=== PATIENT | female | born 1955 | race Caucasian/White ===

== ENCOUNTER 2017-03-04 12:56 | Outpatient (CLI) | payer OTHER ==
--- NOTE | 2017-03-04 14:17 | MMO ---
LEFT DIAGNOSTIC MAMMOGRAM: Date: 03/04/17 COMPARISON: 02/27/17. HISTORY: Left breast calcification seen on screening mammography. FINDINGS: A ML view of the left breast, as well as spot magnification views of the left breast in the ML, MLO, and CC projections were performed. There is heterogeneously dense breast parenchyma which may lower the sensitivity of mammography. There are calcifications in the upper outer aspect of the left abhilash st. On the CC view, these calcifications appear well circumscribed and are slightly smudgy in appear ance. On the ML view, there appears to be tea-cupping within the calcifications and these likely rep resent milk of calcium. No pleomorphic calcifications are identified. There are other scattered calc ifications in the upper outer aspect of the left breast which are not definitely suspicious. IMPRESSION: BIRADS Category 2 - benign findings. Annual screening mammography is recommended. POS: [facility]
== END 2017-03-04 12:57 | disposition home or self-care (01) ==
LOC: MAMMO 12:56
PROVIDERS: ATTEND Internal Medicine
DX: R92.1 Mammographic calcification found on diagnostic imaging of breast (principal)
CPT/HCPCS: G0206-LT

== ENCOUNTER 2017-03-24 10:41 | Emergency (ER) | payer OTHER ==
[2017-03-24] MEDS ORDERED: Albuterol Sulfate 2.5 mg/0.5 ml Neb ONE (10:50)
[2017-03-24] MEDS ORDERED: methylPREDNISolone Sod Succ/PF 125 MG/2 ML VIAL ONE (10:57)
[2017-03-24] MEDS ORDERED: Sterile Water 10 ML ONE (10:57)
[2017-03-24] MEDS ORDERED: Famotidine/PF 20 mg/2ml Vial ONE (10:58)
--- NOTE | 2017-03-24 11:24 | RAD ---
RADIOGRAPH CHEST 2 VIEWS: HISTORY: 61-year-old female with dyspnea. FINDINGS: There is no air space density, pulmonary edema, pleural effusion, pneumothorax, or cardiomegaly. IMPRESSION: No acute cardiopulmonary findings. jn [] POS: [facility]
== END 2017-03-24 12:05 | disposition home or self-care (01) ==
LOC: ERS 10:41 → SCSER 12:05
DX: T78.40XA Allergy, unspecified, initial encounter (principal); I10 Essential (primary) hypertension; Z87.442 Personal history of urinary calculi
CPT/HCPCS: 71020; 96374; 96375; A4216; J2930; J7611; S0028

== ENCOUNTER 2018-06-27 13:19 | Day surgery (SDC) | payer OTHER ==
[2018-06-27] MEDS ORDERED: Iothalamate Meglumine 60% 50 ML VIAL FS ONE ×2 (14:44→15:23)
[2018-06-27] MEDS ORDERED: CEFAZOLIN 2 GM/50 ML BAG ONE (14:56)
[2018-06-27] MEDS ORDERED: Fentanyl 100 MCG/2 ML VIAL ONE (15:05)
[2018-06-27] MEDS ORDERED: Midazolam HCl 2 mg/2 ml Vial ONE (15:06)
[2018-06-27] MEDS ORDERED: Promethazine HCl 25 MG/ML VIAL ONE (15:06)
[2018-06-27] MEDS ORDERED: Dexamethasone 20 MG/5 ML VIAL ONE (15:29)
[2018-06-27] MEDS ORDERED: PROPOFOL 200 MG/20 ML VIAL ONE (15:29)
[2018-06-27] MEDS ORDERED: Succinylcholine Chloride 20 MG/ML 10 ml SYRINGE FS ONE (15:29)
[2018-06-27] MEDS ORDERED: Ondansetron PF 4 MG/2 ML Vial ONE (15:29)
[2018-06-27] MEDS ORDERED: Lidocaine 1% PF 5 ML VIAL ONE (15:29)
[2018-06-27] MEDS ORDERED: HYDROmorphone 2 MG/ML VIAL SLOW IVP PRN (16:02)
[2018-06-27] MEDS ORDERED: Promethazine HCl 25 MG/ML VIAL IM PRN (16:02)
[2018-06-27] MEDS ORDERED: Ondansetron HCl/PF 4 MG/2 ML Vial IVP PRN (16:02)
[2018-06-27] MEDS ORDERED: PACU-Morphine 4MG/ML VIAL SLOW IVP PRN (16:02)
[2018-06-27] MEDS ORDERED: Promethazine HCl 25 MG/ML VIAL SLOW IVP PRN (16:02)
--- NOTE | 2018-06-27 16:26 | OP ---
DATE OF PROCEDURE: 06/27/2018 PREOPERATIVE DIAGNOSIS: Right ureteral stones. POSTOPERATIVE DIAGNOSIS: Right ureteral stones. PROCEDURES PERFORMED: Cystoscopy and right double-J stent placement. ANESTHESIA: General. INDICATIONS: Ms. 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 She has a prior history of stone disease, having had left percutaneous nephrolithotripsy in the past. A CT scan demonstrates 2 right-sided ureteral stones, one 5 x 8 mm and one 5 x 6 mm. Her pain was difficult to manage, so she was transferred from [facility] to [facility]. She has opted to have stent placement. DESCRIPTION OF PROCEDURE: The patient was given general anesthesia and IV antibiotics. She was prepped and draped in the lithotomy position. Cystoscope was passed into the bladder. Bladder was examined in its entirety. There were no mucosal lesions. She did have a significant cystocele. Right ureteral orifice was visualized and a Glidewire was passed cephalad under fluoroscopic control until it was curled in the right renal pelvis. A 4.8 x 24 double-J stent was then passed over the guidewire and coiled in the right renal pelvis and the bladder as determined fluoroscopically and cystoscopically. The bladder was drained. Cystoscope was removed. The patient tolerated the procedure well, was transported from the operating room to recovery room in stable condition. COMPLICATION: None. ESTIMATED BLOOD LOSS: Minimal. Job ID: [id number] [facility]
[2018-06-27] MEDS ORDERED: HYDROcodone/Acetaminophen 5/325 mg Tablet ONE (17:53)
[2018-06-27] MEDS ORDERED: Oxybutynin 5 MG TAB ONE (17:53)
--- NOTE | 2018-06-27 20:58 | CON ---
DATE OF CONSULTATION: 06/27/2018 CHIEF COMPLAINT: Right flank pain, bilateral kidney stones, right ureteral stones. 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 She had a left percutaneous nephrolithotripsy by Dr. Castro approximately 6 years ago. She has not had any stone intervention since that time. She presents now with acute onset of right-sided flank pain. She was seen in [facility], where CT scan was performed. She has two stones in her right ureter, one 5 x 8 mm, one 5 x 6 mm. She has 8 x 9 mm stone in the left kidney and some other small stones in both the right and left kidney. She has no fevers or chills. Denies dysuria. Urinalysis demonstrated no convincing signs of infection. Her pain was difficult to control at [facility] and they recommended that she undergo transfer to [place] for further management. PAST MEDICAL HISTORY: Hypertension, kidney stone disease. PAST SURGICAL HISTORY: Breast biopsy, right salpingo-oophorectomy, appendectomy, left percutaneous nephrolithotripsy. ALLERGIES: 1. MORPHINE CAUSES A RASH. 2. BETADINE TOPICAL. SOCIAL HISTORY: She is a nonsmoker. Denies excessive alcohol use. 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 REVIEW OF SYSTEMS: RESPIRATORY: No shortness of breath. CARDIOVASCULAR: No chest pain or palpitations. GASTROINTESTINAL: She has had some nausea since her stone, pain developed during this hospitalization. GENITOURINARY: Denies dysuria or hematuria. PHYSICAL EXAMINATION: GENERAL: She is awake and alert. She is in no distress at this time. VITAL SIGNS: Blood pressure 138/82, pulse 82, respiratory rate 16. HEENT: Normocephalic, atraumatic. NECK: Supple. No masses. CHEST: Clear to auscultation. CARDIOVASCULAR: Regular rate and rhythm. ABDOMEN: Soft, nontender. No palpable masses. Liver and spleen not palpable. No abdominal tenderness noted. IMPRESSION: Distal ureteral stones x2, one 5 x 6. She has pain and is difficult to control without IV pain medication. Discussed management options with her. She wished to proceed with ureteral stent placement and knowing that she will need to return for definitive treatment of the stones with laser lithotripsy. The alternatives, potential risks, expected outcomes have been discussed with her. She does wish to proceed. PLAN: Cystoscopy, right double-J stent placement. Job ID: [id number]
== END 2018-06-27 18:08 | disposition home or self-care (01) ==
LOC: SDC/OP 13:19
PROVIDERS: ATTEND Urology
PROC: 0T768DZ Dilation of Right Ureter with Intraluminal Device, Via Natural or Artificial Opening Endoscopic (ICD-10-PCS; principal; 2018-06-27)
DX: N20.1 Calculus of ureter (principal); I10 Essential (primary) hypertension; Z87.442 Personal history of urinary calculi; Z90.721 Acquired absence of ovaries, unilateral; Z90.49 Acquired absence of other specified parts of digestive tract; Z88.5 Allergy status to narcotic agent; Z91.09 Other allergy status, other than to drugs and biological substances; Z98.890 Other specified postprocedural states
CPT/HCPCS: 76000; C1769; J1100; J2001; J2250; J2405; J2550; J2704; J3010; Q9961

== ENCOUNTER 2018-07-04 11:10 | Day surgery (SDC) | payer OTHER ==
[~2018-07-04 11:10] MED LIST: Dexamethasone 20 MG/5 ML VIAL ONE; Lidocaine 1% PF 5 ML VIAL ONE; Ondansetron PF 4 MG/2 ML Vial ONE; PROPOFOL 200 MG/20 ML VIAL ONE
[2018-07-04] MEDS ORDERED: Ondansetron PF 4 MG/2 ML Vial ONE (11:15)
[2018-07-04] MEDS ORDERED: Ketorolac Tromethamine 30 MG/ML VIAL ONE (11:15)
[2018-07-04] MEDS ORDERED: Fentanyl 100 MCG/2 ML VIAL ONE ×4 (11:29→14:06)
[2018-07-04 11:32] LABS: #Basophils 0.2 thou/uL (0.0-0.2); #Eosinphils 0.3 thou/uL (0.0-0.7); #Monocytes 0.6 thou/uL (0.11-0.59); #Neutrophils 4.9 thou/uL (1.40-6.50); %Basophils 1.6 % (0.0-1.0); %Eosinophils 2.9 % (0.0-10.0); %Monocytes 5.7 % (0.0-10.0); %Neutrophils 49.8 % (42.0-75.0); Hemoglobin 15.3 g/dL (12.0-16.0); Mean Corpuscular HGB CONC 33.6 g/dL (32.0-36.0); Mean Corpuscular Hemoglobin 29.2 pg (27.0-31.0); Mean Corpuscular Volume 86.8 fL (78.0-98.0); Platelet Count 223 thou/uL (130-400); RBC Distribution Width 11.3 % (11.5-14.5); Red Blood Cell (RBC) Count 5.26 mill/uL (4.20-5.40); White Blood Cell (WBC) Count 9.9 thou/uL (4.8-10.8)
[2018-07-04 11:47] LABS: ALT (SGPT) 14 U/L (8-55); AST (SGOT) 16 U/L (5-34); Albumin 4.3 g/dL (3.4-4.8); Alkaline Phosphatase 87 U/L (40-150); Anion Gap 15 mmol/L (10-20); BUN (Urea Nitrogen) 20 mg/dL (9.8-20.1); Bilirubin, Total 0.4 mg/dL (0.2-1.2); Calc. Creatinine Clearance 0 mL/min (70-130); Calcium 11.2 mg/dL (7.8-10.44); Carbon Dioxide 25 mmol/L (23-31); Chloride 106 mmol/L (98-107); Estimated GFR-MDRD 76; Glucose 102 mg/dL (80-115); Lipase 26 U/L (8-78); Potassium 4.2 mmol/L (3.5-5.1); Protein, Total 7.3 g/dL (6.0-8.3); Sodium 142 mmol/L (136-145)
[2018-07-04 12:42] LABS: Bilirubin Negative (Negative); Blood, Urine Large (Negative); Glucose, Urine (Dipstick) Negative (Negative); Leukocyte Small (Negative); Nitrite Negative (Negative); Protein, Urine (Dipstick) 100 mg/dL (Neg-Trace); Urobilinogen 0.2 mg/dL (0.2-1.0)
[2018-07-04 12:43] LABS: Clarity Hazy (Clear)
[2018-07-04 12:49] LABS: Bacteria/HPF 1+ HPF (None Seen)
[2018-07-04] MEDS ORDERED: Levofloxacin 500 mg/D5W 100 ml Premix Bag ONE (13:53)
[2018-07-04] MEDS ORDERED: Oxybutynin 5 MG TAB ONE (15:01)
[2018-07-04] MEDS ORDERED: Phenazopyridine HCl 97.5 MG TABLET ONE (15:01)
--- NOTE | 2018-07-04 15:16 | CT ---
CT ABDOMEN NONCONTRAST CT PELVIS NONCONTRAST: (urolithiasis protocol) DATE: 07/04/2018. TIME: 12:00 p.m. HISTORY: A 62-year-old female with right obstructive uropathy, with right ureteral calculus. Ureteral stent p laced on 06/27/2018, but the patient is experiencing worsening of right flank pain today. COMPARISON: 11/18/2010. TECHNIQUE: IV injection of iodinated contrast media: none. Oral contrast media: none. FINDINGS: Other than for urolithiasis, the lack of IV and oral contrast limits the evaluation. There is a right ureteral stent, new since the 2011 CT. The lower pigtail loop is in the anterior as pect of the bladder lumen, after crossing over to the left side of the urinary bladder from the right UVJ. The upper pigtail loop of the stent is in the right proximal ureter at the L4-5 level. Superi or to that, there is moderate to severe dilation of the right proximal ureter, right renal pelvis, an d right calyces, similar to the appearance on the CT of 11/18/2010. There is right nephromegaly and m ild right perirenal fat stranding representing edema. There are tiny calculi in right renal upper, mid, and lower pole calyces, on the order of 1 and 2 mm in size each, more numerous than in 2011. There is a new finding of numerous calculi in the contra lateral left renal upper, mid, and lower keri e calyces of varying sizes, varying from 1 or 2 mm for the smallest ones, up to 10 x 12 x 8 mm for th e largest one at a left renal lower pole calyx. No left-sided hydronephrosis. Within the limitations of a noncontrast scan, no major pathology is identified involving abdominal ao rta, pancreas, liver, spleen, or right adrenal. There is a small left adrenal 1 cm nodule which is a pparently new since the previous CT. It has a density of 7 HU, consistent with adrenal adenoma. No pleural effusion. IMPRESSION: 1. Right obstructive uropathy: Moderate to severe right hydronephrosis and right nephromegaly with perirenal mild edema. 2. Although there is a right-sided ureteral stent, the upper pigtail loop is in the right proximal u reter, rather than being in the right renal collecting system. 3. Bilateral nephrolithiasis, with greater number and sizes of bilateral renal calculi, left greater than right, compared to 11/18/2010. CARLOS Melton POS: [facility]
--- NOTE | 2018-07-04 15:39 | CON ---
DATE OF CONSULTATION: 07/04/2018 ER CONSULTATION. PRIMARY UROLOGIST: Shlomo Castro MD ; status post right ureteral stent placement by Dr. Samuel 1 week ago. REASON FOR CONSULT: Right hydronephrosis secondary to migrated stent. HISTORY OF PRESENT ILLNESS: Ms. Campa is a 62-year-old female with history of recurrent kidney stones followed by Dr. Catsro. She underwent CT imaging at [facility] on June 27 due to intractable pain and found to have right distal ureteral calculi x2. She was seen by on-call Dr. Samuel and underwent cysto 4.8 x 24 double-J ureteral stent. The patient states that she is scheduled to have ureteroscopy, laser lithotripsy with Dr. Castro this Friday. She presented to [facility] ER. She had acute onset of right lower flank pain, intractable. CT restaging obtained by the emergency room demonstrating distal migration of the right ureteral stent to the proximal ureter with hydronephrosis. She has been provided multiple pain medication including Dilaudid 0.5 mg, fentanyl 150 mcg, Toradol 15 mg, and Zofran 4 mg. Currently, she still has some discomfort, however, it is adequately controlled. Due to significant discomfort with hydronephrosis, I advised that she will be transferred to [place] for cysto stent exchange. She states that she has been on Macrobid provided by Dr. Castro. Denies fever. She does have hypertension, on arrival, however, this is due to pain. PAST MEDICAL HISTORY: Includes hypertension and kidney stones, recurrent. PAST SURGICAL HISTORY: Breast biopsy; right salpingo-oophorectomy; appendectomy ; left percutaneous nephrolithotomy by Dr. Castro in 2005; on June 27, 2018, cysto right retrograde stent by Dr. Samuel. ALLERGIC: To morphine, rash, Betadine topical. SOCIAL HISTORY: Nonsmoker. Denies excessive alcohol or illicit drug use. 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 REVIEW OF SYSTEMS: Ten-point review of systems as above, otherwise noncontributory. PHYSICAL EXAMINATION: VITAL SIGNS: Blood pressure on arrival was 212/75, otherwise unremarkable. Afebrile. GENERAL: The patient is conversational and cooperative to physical exam. HEENT: Unremarkable. HEART: Regular rate. LUNGS: Clear. ABDOMEN: Soft. There is some tenderness to the right lower quadrant as anticipated. Obese. No rigidity. No rebound. EXTREMITIES: No cyanosis, clubbing, or edema. GENITOURINARY: Deferred at this time. PERTINENT LABORATORY DATA: White count 9.9, hemoglobin 15, and platelet 223. Creatinine 0.77, calcium 11.2. Urinalysis; contaminated, squamous epithelials are present, however, has 2+ bacteria, 4 to 6 wbc's, 100 protein, yellow. Of note, on July 02, urine culture is negative. Prior history of Klebsiella, pansensitive in 2016. IMAGING: CT stone protocol, which I reviewed myself. The left kidney has no evidence of hydronephrosis. There are left lower pole aggregate stones per my review, measuring 2 cm. There is distal migration of the right ureteral stent to the level of L3/L4 ureter with hydronephrosis and nephromegaly. Stone nidus in the distal ureter. IMPRESSION AND PLAN: Ms. Campa is a 62-year-old female, who presents with right hydronephrosis pain due to distal migration of ureteral stent resulting in hydronephrosis. 2. Left nonobstructing renal lithiasis, 2 cm. 3 Hypercalcemia. Recommend cysto right retrograde stent exchange. will obtain a UA, AERONAUTICAL ENGINEER intraoperatively as specimen provided is contaminated. I anticipate the patient will be discharged home after stent replacement with appropriate medications. She is to follow up with Dr. Castro, as culture needs to be reviewed prior to ureteroscopy, laser lithotripsy. Job ID: [id number] MTDD
--- NOTE | 2018-07-04 15:47 | OP ---
DATE OF PROCEDURE: 07/04/2018 PRIMARY UROLOGIST: Shlomo Castro MD PREOPERATIVE DIAGNOSES: 1. A 62-year-old female with history of recurrent kidney stone, history of right hydronephrosis secondary to two ureteral calculi. 2. Nonobstructing left lower pole 2-cm stone. 3. Intractable pain secondary to distal migration of previous ureteral stent with hydronephrosis. POSTOPERATIVE DIAGNOSES: 1. A 62-year-old female with history of recurrent kidney stone, history of right hydronephrosis secondary to two ureteral calculi. 2. Nonobstructing left lower pole 2-cm stone. 3. Intractable pain secondary to distal migration of previous ureteral stent with hydronephrosis. PROCEDURES PERFORMED: Cystoscopy, right retrograde, 6 x 26 double-J ureteral stent exchange. ANESTHESIA: LMA. COMPLICATIONS: None apparent. DISPOSITION: To recovery room in stable condition. INTRAOPERATIVE FINDINGS: 1. Grade 3 cystocele. 2. Distal migration of the ureteral stent. INDICATIONS FOR PROCEDURE AND HISTORY: Ms. 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 Samuel on June 27 due to distal ureteral calculi x2. She presents to the emergency room due to acute onset of intractable right flank pain requiring significant amount of narcotics , CT staging demonstrated hydronephrosis secondary to distal migration of the stent with hydronephrosis. The ureteral stones remain in situ. Of note, the patient had hypercalcemia, which will need to be worked up at a later point by her primary urologist. She presents for cysto stent exchange due to significant discomfort. Risks and complications and indications of the procedure was reviewed with her in detail and she desired to proceed. DESCRIPTION OF PROCEDURE: After an informed consent was signed, the patient was taken to the operating room, placed in a dorsal lithotomy position with the genital area prepped and draped in the usual surgical sterile fashion. Bilateral DEJAH hose SCDs and broad-spectrum antibiotics were provided. The genital area was formally prepped and draped and we used a 21-Indonesian cystoscope. She does have a moderate cystocele, grade 2 to 3. Cystoscope was passed without significant issues. The stent was removed to the level of the meatus. A 0.035 Sensor wire was passed through the existing 4.8-Indonesian stent. There was some hang up at the proximal ureter. Therefore, after the stent was completely removed, we transitioned to an open-ended catheter with the wire in situ and the wire was then negotiated into the upper collecting system. To ensure proper placement, I did pull the wire out and performed a retrograde pyelogram demonstrating opacification of the collecting system with hydronephrosis. Wire was seen in the right upper pole. A 6 x 26 double-J ureteral stent was passed. Adequate redundancy was noted in the bladder with proper placement. All wires were then removed and bladder completely emptied and she tolerated the procedure well. Prior to starting the case, I did obtain a UA C and S through the cystoscope as the specimen obtained in the emergency room was contaminated. She will need to follow up regarding culture results prior to proceeding with ureteroscopy, laser lithotripsy. patient has been informed. She is discharged with one dose of ciprofloxacin for tomorrow as she has an appointment with Dr. Castro on Friday. Oxybutynin 10 mg XL, Azo, and [place] 5/ 325 provided. The patient to contact Dr. Castro on Friday regarding her candidacy to proceed with ureteroscopy, laser lithotripsy as planned. Job ID: [id number] MTDD
--- NOTE | 2018-07-04 17:09 | RAD ---
RETROGRADE PYELOGRAM TWO VIEWS: 07/04/18 HISTORY: 62-year-old female with right obstructive uropathy. Right ureteral stent exchange. FINDINGS: The right ureteral stent with upper pigtail loop in right proximal ureter demonstrated on today's CT earlier, has been removed, and replaced with a straight right ureteral catheter that ascends from the lower pelvis, with distal tip at a right renal upper pole calyx. There is contrast material in moder ate to severely dilated right renal collecting system. The second image demonstrates slight superior advancement of catheter into the severely dilated right renal upper pole calyx. Moderate sized calcul us at contralateral left renal lower pole is again noted. There is no contrast material inferior to t he right UPJ. IMPRESSION: 1. Moderate to severe right hydronephrosis. 2. Right sided ureteral catheter ascending. POS: [facility]INCENT
== END 2018-07-04 15:45 | disposition home or self-care (01) ==
LOC: SCSER 11:10 → SDC 13:31
PROVIDERS: ATTEND Urology
PROC: 0T767DZ Dilation of Right Ureter with Intraluminal Device, Via Natural or Artificial Opening (ICD-10-PCS; principal; 2018-07-04)
PROC: 0TP97DZ Removal of Intraluminal Device from Ureter, Via Natural or Artificial Opening (ICD-10-PCS; principal; 2018-07-04)
DX: T83.122A Displacement of indwelling ureteral stent, initial encounter (principal); N13.2 Hydronephrosis with renal and ureteral calculous obstruction; N81.10 Cystocele, unspecified; E83.52 Hypercalcemia; I10 Essential (primary) hypertension; Z88.5 Allergy status to narcotic agent; Z91.041 Radiographic dye allergy status
CPT/HCPCS: 74176; 74420; 80053; 81003; 81015; 83690; 85025; 87070; 87086; 87205; 96361; 96374; 96375; 96376; C1758; C1769; J1100; J1170; J1885; J1956; J2001; J2405; J2704; J3010

== ENCOUNTER 2018-07-06 08:51 | Day surgery (SDC) | payer OTHER ==
[2018-07-06] MEDS ORDERED: cefTRIAXone\\ROCEPHIN 2 GM VIAL ONE (09:14)
[2018-07-06] MEDS ORDERED: Sodium Chloride 0.9% 100 ML ONE (09:14)
[2018-07-06] MEDS ORDERED: Iothalamate Meglumine 60% 50 ML VIAL FS ONE (09:53)
[2018-07-06] MEDS ORDERED: Fentanyl 100 MCG/2 ML VIAL ONE (09:58)
--- NOTE | 2018-07-06 13:32 | OP ---
DATE OF PROCEDURE: 07/06/2018 PREOPERATIVE DIAGNOSIS: Right distal ureteral stones. POSTOPERATIVE DIAGNOSIS: Right distal ureteral stones. PROCEDURES PERFORMED: Cysto, right rigid ureteroscopy, laser lithotripsy, and stone retrieval. ANESTHETIC: General. ESTIMATED BLOOD LOSS: Minimal. DRAINS PLACED: A 4.8 x 24 cm double-J stent with a string attached. FINDINGS: There are 2 distal stones probably measuring in the 6 to 7 mm in length each. We did not send any fragments off that she has had a prior history of stone procedures and we know her stone analysis and there is nothing that would suggest that this would have changed. OPERATIVE TECHNIQUE: After obtained written and verbal consent from the patient, after receiving IV antibiotics, she was taken to the operating suite. She was placed in a supine position on the OR table and PlexiPulse were placed on the lower extremities. She was given a general anesthetic and oral intubation. She was placed in the dorsal lithotomy position. She was sterilely prepped and draped. Cystoscopy was performed with a 22-Nicaraguan sheath. This was well lubricated and passed under direct vision through the female urethra into the bladder with aid of a 30-degree lens and video camera and monitor. The bladder was filled and emptied number of times. The distal end of the indwelling double-J stent was grasped, brought out the urethral meatus. Guidewire 0.038 was fed up through this and the stent was removed over the guidewire and discarded. We then brought in a small caliber short graduated rigid ureteroscope and using a video camera, passed this under direct vision through the female urethra and up the right ureter to the level of the distal stones. We brought in a small caliber laser fiber and used this to start fragmenting the stone into tiny pieces working the edges. Once the distal stone had been worked down into a smaller pieces, we used a Nitinol basket to engage it. Unfortunately, this also engaged to 1 slightly more proximal to it and so we had to break down the Nitinol basket, then go up adjacent to the basket with a rigid scope and lasered the stone in the basket itself and then will allow us to laser the second stone in the basket itself, then removed it, removing some of the pieces in the basket. We then repeated ureteroscopy up to about mid ureter, found no further evidence of any stones or obstruction or significant stone fragments. She had numbers of fragments in the urinary bladder. At this point, we backloaded our guidewire through our cystoscope, passed a 5-Nicaraguan [place] catheter across this up in the region of renal pelvis, injected about 15 mL of contrast, that fill out a slightly dilated renal pelvis and ureter with contrast going all the way down to the bladder without any evidence of any extravasation or obstruction. The guidewire was replaced. The open-ended catheter was removed and a stent was placed over the guidewire, pushing up into place with aid of a pusher, so its proximal end coiled in the renal pelvis and its distal end coiled in the bladder when the wire was removed. The string was cut, so it would not hang too far out of the urethral meatus. She was taken out of the dorsal lithotomy position, awakened, extubated, and taken by shantell to the recovery room. Job ID: [id number]
[2018-07-06] MEDS ORDERED: Glycopyrrolate 0.2 MG/ML 5 ML SYRINGE ONE (13:35)
[2018-07-06] MEDS ORDERED: Dexamethasone 20 MG/5 ML VIAL ONE (13:35)
[2018-07-06] MEDS ORDERED: Rocuronium Bromide 10 MG/ML (10ML VIAL) ONE (13:35)
[2018-07-06] MEDS ORDERED: PROPOFOL 200 MG/20 ML VIAL ONE (13:35)
[2018-07-06] MEDS ORDERED: Lidocaine 1% PF 5 ML VIAL ONE (13:35)
[2018-07-06] MEDS ORDERED: Ondansetron PF 4 MG/2 ML Vial ONE (13:35)
[2018-07-06] MEDS ORDERED: Succinylcholine Chloride 20 MG/ML 10 ml SYRINGE FS ONE (13:35)
--- NOTE | 2018-07-06 14:08 | RAD ---
RIGHT RETROGRADE PYELOGRAM 2 VIEWS: HISTORY: Right obstructive uropathy. COMPARISON: A 07/04/2017 study. FINDINGS: These are 2 films that show contrast being injected into the right collecting system. The right steph ecting system is again noted to be dilated. The ureter does not appear dilated. The second image sh ows a wire in place. IMPRESSION: Dilatation of the right collecting system similar to the previous study. POS: [facility]
--- NOTE | 2018-07-06 20:21 | EKG ---
Test Reason : PREOP Blood Pressure : / mmHG Vent. Rate : 047 BPM Atrial Rate : 047 BPM P-R Int : 146 ms QRS Dur : 098 ms QT Int : 450 ms P-R-T Axes : 017 072 055 degrees QTc Int : 398 ms Marked sinus bradycardia Abnormal ECG When compared with ECG of 21-NOV-2010 08:49, Vent. rate has decreased BY 37 BPM Incomplete right bundle branch block is no longer Present Confirmed by MILAGRO CAROLINA, . S. (4) on 07/06/2018 8:20:44 PM Referred By: ISAEL Confirmed By:DR. Liberty HUMPHREY MD
== END 2018-07-06 12:45 | disposition home or self-care (01) ==
LOC: SDC 08:51
PROVIDERS: ATTEND Urology
PROC: BT1DZZZ Fluoroscopy of Right Kidney, Ureter and Bladder (ICD-10-PCS; principal; 2018-07-06)
PROC: 0T768DZ Dilation of Right Ureter with Intraluminal Device, Via Natural or Artificial Opening Endoscopic (ICD-10-PCS; principal; 2018-07-06)
PROC: 0TF68ZZ Fragmentation in Right Ureter, Via Natural or Artificial Opening Endoscopic (ICD-10-PCS; principal; 2018-07-06)
DX: N20.1 Calculus of ureter (principal); I10 Essential (primary) hypertension; K21.9 Gastro-esophageal reflux disease without esophagitis; H26.9 Unspecified cataract; Z91.09 Other allergy status, other than to drugs and biological substances; Z98.890 Other specified postprocedural states
CPT/HCPCS: 74420; 93005; 93010; C1758; J0696; J1100; J2001; J2405; J2704; J3010; J7050; Q9961

== ENCOUNTER 2018-07-10 10:02 | Outpatient (CLI) | payer OTHER ==
--- NOTE | 2018-07-10 12:01 | CT ---
CT ABDOMEN AND PELVIS NONCONTRAST: Date: 07/10/18 HISTORY: Flank pain. Nephrolithiasis. COMPARISON: 07/04/18. FINDINGS: The right ureteral stent on the prior study is no longer visible. The small hyperdense stone in the r ight ureter has also been removed. Distention of the right renal collecting system and ureter are sim ilar in degree to the 07/04/18 exam. Stones within the calices of each kidney, small on the right and rather large on the left, are also stable. Lack of contrast limits evaluation for other abnormalities. Urinary bladder is decompressed without s tones evident. There is calcification within the arterial structures. IMPRESSION: 1. Interval removal of the right ureteral stent and right ureteral calculus. Right hydroureteronephr osis is unchanged in degree from the previous exam. 2. Bilateral renal calculi appear stable. 3. Atherosclerosis. Findings were called to Dr. Castro at 1042 hours. CODE CR. POS: [facility]
== END 2018-07-10 10:03 | disposition home or self-care (01) ==
LOC: SCSCT 10:02
PROVIDERS: ATTEND Urology
DX: N20.2 Calculus of kidney with calculus of ureter (principal); N13.30 Unspecified hydronephrosis; I70.0 Atherosclerosis of aorta; Z96.0 Presence of urogenital implants
CPT/HCPCS: 74176

== ENCOUNTER → 2018-07-10 | Day surgery (SDC) | payer OTHER ==
[~2018-07-10] MED LIST changes: -Dexamethasone 20 MG/5 ML VIAL ONE; +Fentanyl 100 MCG/2 ML VIAL ONE; +Iothalamate Meglumine 60% 50 ML VIAL FS ONE; -Lidocaine 1% PF 5 ML VIAL ONE; +Lidocaine 2% Jelly 5 ML TUBE ONE; +Midazolam HCl 2 mg/2 ml Vial ONE; -PROPOFOL 200 MG/20 ML VIAL ONE; +Sodium Chloride 0.9% 100 ML ONE; +cefTRIAXone\\ROCEPHIN 2 GM VIAL ONE
--- NOTE | 2018-07-10 14:38 | RAD ---
RETROGRADE URETEROGRAM WITH INTRAOPERATIVE FLUOROSCOPY: HISTORY: Ureteral dilatation. FINDINGS: Intraoperative fluoroscopy was provided for retrograde study, as performed by Dr. Castro. Spot fluor oscopic images show contrast opacification of a dilated right renal collecting system and ureter. Re nal stones overly the left renal shadow. Final image shows the double pigtail stent to be in good position, over the course of the right urete r. POS: [facility]
--- NOTE | 2018-07-10 15:14 | OP ---
DATE OF PROCEDURE: 07/10/2018 PREOPERATIVE DIAGNOSES: Right ureteral colic, right hydronephrosis. POSTOPERATIVE DIAGNOSES: Right ureteral colic, right hydronephrosis. PROCEDURE PERFORMED: Cysto, right retrograde, right stent. ANESTHETIC: General. ESTIMATED BLOOD LOSS: Minimal. FINDINGS: She had a very edematous right ureteral orifice. Otherwise, the bladder looked normal. On retrograde study, she had a dilated renal collecting system and ureter all the way down to the ureterovesical junction. There was no obvious filling defect. CAT scan failed to show any stone in the distal ureter. INDICATIONS FOR SURGERY: This is a 62-year-old white female who presented with right ureteral obstruction almost two weeks ago and she was treated with a stent. About 6 days ago, the stent migrated out of her urethra and she had to have that replaced. Four days ago, she had right rigid ureteroscopy, laser lithotripsy, stone retrieval, and at that point, a stent replaced with a string attached. Two days ago, she had in the middle of the night extreme pain on the right side and felt like the stent had moved out again, so we had her take that stent out via the string and then she did fine all day yesterday and today started having back pain again and some nausea, which progressively got worse. I saw her in the office this morning and did a noncontrast CAT scan. She had the hydro, but no stones visible in the ureter. I thought it is probably just edema, but because her pain has significantly worsened and she is vomiting and unable to eat or drink, she is coming in now for stent replacement. OPERATIVE TECHNIQUE: Obtained written and verbal consent from the patient. She was taken to the operating suite. She received 2 g of Rocephin. She was placed in the supine position on the treatment table. PlexiPulse was placed on her lower extremities and turned on. She was given a general anesthetic oral intubation. She was placed in the dorsal lithotomy position, sterilely prepped and draped. Fluoroscopy unit was set up for imaging. Cystoscopy was performed with a 22-[place] sheath that was passed under direct vision through the female urethra into the urinary bladder with aid of a 30 degree lens video camera and monitor. The bladder was filled and emptied a couple of times. Very swollen right ureter, could not get a guidewire to go through the ureteral orifice. I think it may cause the swelling, so we brought in a [place] catheter and fed an angled Glidewire. This easily went across the right ureter and up the ureter, the open-ended catheter following it, we removed the open-ended catheter. She had a brisk hydronephrotic drip of clear urine. We then shot contrast through this half and half contrast probably about 12 mL filling out the collecting system as described above. I replaced the guidewire through the open-ended catheter, removed the opening catheter, then placed a 6 x 24 polaris double-J stent over the guidewire, pushing up into place with the aid of pusher, so its proximal end coiled in the upper calyceal system and its distal end coiled in the urinary bladder, was draining clear yellow urine through it without difficulty. The bladder was drained. Instruments were removed. She was awakened, extubated, and taken by stretcher to recovery room. The string was not left attached to the ureteral stent. Job ID: [id number]
== END ==
LOC: SDC 12:06
PROVIDERS: ATTEND Urology
PROC: 0T768DZ Dilation of Right Ureter with Intraluminal Device, Via Natural or Artificial Opening Endoscopic (ICD-10-PCS; principal; 2018-07-10)
PROC: BT1DZZZ Fluoroscopy of Right Kidney, Ureter and Bladder (ICD-10-PCS; principal; 2018-07-10)
DX: N23 Unspecified renal colic (principal); N13.30 Unspecified hydronephrosis; Z88.5 Allergy status to narcotic agent
CPT/HCPCS: 74176; 74420; C1758; C1769; J0696; J2250; J2405; J3010; J7050; Q9961

== ENCOUNTER 2018-08-31 16:24 | Outpatient (CLI) | payer OTHER ==
--- NOTE | 2018-09-16 15:49 | MMO ---
Bilateral MAMMO Bilat Screen [facility]. CLINICAL HISTORY: Patient is 62 years old and is seen for screening. The patient has the following family history of breast cancer: mother, malignant (generic). The patient has no personal history of cancer. VIEWS: The views performed were: bilateral craniocaudal with tomosynthesis and bilateral mediolateral oblique with tomosynthesis. FILMS COMPARED: The present examination has been compared to prior imaging studies performed at [facility] on 11/19/2002, 12/14/2002, 01/21/2003, 02/27/2017 and 03/04/2017. MAMMOGRAM FINDINGS: The breasts are heterogeneously dense, which could obscure a lesion on mammography. There are benign appearing calcifications seen in both breasts. There are also vascular calcifications. There are no suspicious masses, suspicious calcifications, or new areas of architectural distortion. IMPRESSION: THERE IS NO MAMMOGRAPHIC EVIDENCE OF MALIGNANCY. A ROUTINE FOLLOW-UP MAMMOGRAM IN 1 YEAR IS RECOMMENDED. THE RESULTS OF THIS EXAM WERE SENT TO THE PATIENT. ACR BI-RADS Category 2 - Benign finding MAMMOGRAPHY NOTE: 1. A negative mammogram report should not delay a biopsy if a dominant of clinically suspicious mass is present. 2. Approximately 10% to 15% of breast cancers are not detected by mammography. 3. Adenosis and dense breasts may obscure an underlying neoplasm.
== END 2018-08-31 16:25 | disposition home or self-care (01) ==
LOC: BICMAMMO 16:24
PROVIDERS: ATTEND Family Medicine
DX: Z12.31 Encounter for screening mammogram for malignant neoplasm of breast (principal); Z80.3 Family history of malignant neoplasm of breast
CPT/HCPCS: 77063; 77067

== ENCOUNTER 2018-10-27 14:33 | Outpatient (CLI) | payer OTHER ==
--- NOTE | 2018-10-27 16:20 | MRI ---
MRI OF LEFT KNEE PERFORMED WITHOUT CONTRAST ENHANCEMENT: 10/27/18 HISTORY: Twisted knee on Friday. Having knee pain and swelling. There is motion artifact which degrades detail. The anterior and cruciate ligament is intact. The po sterior cruciate ligament is intact. The menisci are difficult to assess due to the motion. There is increased intrameniscal signal change within the medial meniscus which is felt to represent internal mucoid degeneration. Similar changes of the lateral meniscus. Some of these changes extend very clos e to the articular surface near the junction of the posterior horn and body but this is not felt to r epresent a meniscal tear, rather just motion artifact. The medial and lateral collateral ligaments and iliotibial band regions are normal. There is some muna ma change near the insertion of the lateral head of the gastrocnemius muscle which could indicate ness e mild strain and also some very subtle changes of the musculotendinous junction of the semimembranos us muscle also indicating possibly some strain. The patellar articular cartilage shows some articular cartilage loss along the medial facet and apex of the patella. Some subchondral bony change seen. The medial and lateral patellar retinaculum and qu adriceps and patellar tendons are normal. Slightly prominent medial patellar plica is present. IMPRESSION: 1. No evidence of cruciate ligament injury. 2. Increased intrameniscal signal change within the menisci suggesting some internal mucoid dege neration. 3. Small joint effusion. 4. 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 5. Slightly prominent medial patellar plica. 6. Subtle edema changes at the insertion of the lateral head of the gastrocnemius muscle on the femur and in the region of musculotendinous junction of the semimembranosus. This could indicate some areas of very subtle grade I muscle strain. POS: [facility]
== END 2018-10-27 14:34 | disposition home or self-care (01) ==
LOC: SCSRAD 14:33 → SCSMRI 14:34
PROVIDERS: ATTEND Family Medicine
DX: M25.562 Pain in left knee (principal); M25.462 Effusion, left knee; M22.42 Chondromalacia patellae, left knee; R60.0 Localized edema

== ENCOUNTER 2020-07-12 09:21 | Outpatient (CLI) | payer OTHER ==
--- NOTE | 2020-07-12 10:36 | MMO ---
Bilateral MAMMO Bilat Screen [facility]. CLINICAL HISTORY: Patient is 64 years old and is seen for screening. The patient has the following family history of breast cancer: mother, malignant (generic). The patient has no personal history of cancer. The patient has a history of right needle biopsy more than 10 years ago - benign. VIEWS: The views performed were: bilateral craniocaudal with tomosynthesis and bilateral mediolateral oblique with tomosynthesis. FILMS COMPARED: The present examination has been compared to prior imaging studies performed at [facility] on 01/21/2003, 02/27/2017, 03/04/2017 and 08/31/2018. This study has been interpreted with the assistance of computer-aided detection. MAMMOGRAM FINDINGS: The breasts are extremely dense, which may lower the sensitivity of mammography. Finding 1: There is a new equal density, lobular mass measuring 17 millimeters with circumscribed margins seen in the MLO view only seen in the posterior outer region of the right breast. Finding 2: There are stable post operative changes seen in the right breast. Finding 3: There are stable benign appearing calcifications seen in both breasts. There are also vascular calcifications. IMPRESSION: FINDING 1: NEW MASS IN THE RIGHT BREAST REQUIRES ADDITIONAL EVALUATION. AN ULTRASOUND EXAM IS RECOMMENDED. THE RESULTS OF THIS EXAM WERE SENT TO THE PATIENT. ACR BI-RADS Category 0 - Incomplete: Need additional imaging evaluation. [facility] will notify the patient of the need for additional imaging services. MAMMOGRAPHY NOTE: 1. A negative mammogram report should not delay a biopsy if a dominant of clinically suspicious mass is present. 2. Approximately 10% to 15% of breast cancers are not detected by mammography. 3. Adenosis and dense breasts may obscure an underlying neoplasm. Reported by: BENJAMIN JARRETT MD Electonically Signed: [id number]
== END 2020-07-12 09:22 | disposition home or self-care (01) ==
LOC: BICMAMMO 09:21
PROVIDERS: ATTEND Family Medicine
DX: Z12.31 Encounter for screening mammogram for malignant neoplasm of breast (principal); N63.10 Unspecified lump in the right breast, unspecified quadrant; Z80.3 Family history of malignant neoplasm of breast; Z91.89 Other specified personal risk factors, not elsewhere classified
CPT/HCPCS: 77063; 77067

== ENCOUNTER 2020-08-08 09:29 | Outpatient (CLI) | payer OTHER ==
--- NOTE | 2020-08-08 10:02 | ULT ---
Thyroid ultrasound: 08/08/2020 COMPARISON: 08/24/2014 HISTORY: Reevaluate thyroid nodule TECHNIQUE: Multiplanar grayscale sonographic imaging of the thyroid gland provided FINDINGS: The isthmus measures 7 mm in AP dimension. The right lobe measures 2.0 x 1.9 x 4.7 cm. The left lobe measures 1.2 x 1.7 x 4.5 cm. A solid hypoechoic nodule is noted within the midportion of the right lobe measuring approximately 1. 2 x 1.4 x 1.8 cm, similar when compared to the prior exam at which time it measured 1.2 x 1.1 x 1.7 cm. Of note, ultrasound-guided biopsy of this thyroid nodule was performed on 07/24/2012. No new thyro id nodules are noted. IMPRESSION: No significant interval change in the solid hypoechoic nodule within the midportion of th e right lobe.
--- NOTE | 2020-08-08 10:02 | ULT ---
EXAM: US Breast Limited Rt PROVIDED CLINICAL HISTORY: Abnormal mammogram COMPARISON: Screening mammogram 07/12/2020 FINDINGS: Limited sonographic interrogation of the right breast at the 9:00 position was performed in the regio n of mammographic concern. There is an intramammary lymph node present in this location, measuring approximately 1.2 cm. There is uniform cortical thickening. The patient gives a history of recent Cov id vaccination, which could explain this finding. IMPRESSION: Enlarged intramammary lymph node, possibly on a reactive basis due to recent Covid vaccination. Recom mend repeat targeted ultrasound 3 months after the patient receives the second dose of vaccine. BI-RADS 3 -- probably benign, 6-month follow-up
== END 2020-08-08 09:30 | disposition home or self-care (01) ==
LOC: BICULT 09:29
PROVIDERS: ATTEND Family Medicine
DX: E04.1 Nontoxic single thyroid nodule (principal)
CPT/HCPCS: 76536

== ENCOUNTER 2021-02-28 10:41 | Outpatient (CLI) | payer OTHER | END 2021-02-28 10:42 | disposition home or self-care (01) | LOC: BICULT 10:41 | PROVIDERS: ATTEND Family Medicine | DX: R92.8 Other abnormal and inconclusive findings on diagnostic imaging of breast (principal); R59.0 Localized enlarged lymph nodes ==

== ENCOUNTER → 2021-07-18 | Day surgery (SDC) | payer BC | LOC: NM 07:26 | PROVIDERS: ATTEND Internal Medicine Endocrinology, Diabetes & Metabolism | DX: E21.3 Hyperparathyroidism, unspecified (principal); E04.1 Nontoxic single thyroid nodule | CPT/HCPCS: 78072; A9500 ==

== ENCOUNTER 2021-08-03 07:53 | Outpatient (CLI) | payer BC ==
[2021-08-03] MEDS ORDERED: Iopamidol-370 76% 500 ML 1 ML ONE (11:21)
== END 2021-08-03 07:54 | disposition home or self-care (01) ==
LOC: CT 07:53
PROVIDERS: ATTEND Otolaryngology Plastic Surgery within the Head & Neck
DX: E21.3 Hyperparathyroidism, unspecified (principal); E07.89 Other specified disorders of thyroid
CPT/HCPCS: 70492; 82565; Q9967

== ENCOUNTER 2022-03-19 09:39 | Outpatient (CLI) | payer BC | END 2022-03-19 09:40 | disposition home or self-care (01) | LOC: BICMAMMO 09:39 | PROVIDERS: ATTEND Family Medicine | DX: Z12.31 Encounter for screening mammogram for malignant neoplasm of breast (principal); Z13.820 Encounter for screening for osteoporosis; E21.3 Hyperparathyroidism, unspecified; R92.1 Mammographic calcification found on diagnostic imaging of breast; N63.10 Unspecified lump in the right breast, unspecified quadrant; Z80.3 Family history of malignant neoplasm of breast; Z91.89 Other specified personal risk factors, not elsewhere classified | CPT/HCPCS: 77063; 77067; 77080 ==

== ENCOUNTER 2022-03-25 10:47 | Outpatient (CLI) | payer BC | END 2022-03-25 10:48 | disposition home or self-care (01) | LOC: BICULT 10:47 | PROVIDERS: ATTEND Family Medicine | DX: N63.10 Unspecified lump in the right breast, unspecified quadrant (principal); R92.2 Inconclusive mammogram | CPT/HCPCS: G0279 ==

== ENCOUNTER 2023-07-30 10:34 | Outpatient (CLI) | payer BC | END 2023-07-30 10:35 | disposition home or self-care (01) | LOC: BICULT 10:34 | PROVIDERS: ATTEND Nurse Practitioner Family | DX: E04.1 Nontoxic single thyroid nodule (principal) | CPT/HCPCS: 76536 ==

== ENCOUNTER 2024-08-02 13:31 | Outpatient (CLI) | payer BC, MEDICARE | END 2024-08-02 13:32 | disposition home or self-care (01) | LOC: BICMAMMO 13:31 | PROVIDERS: ATTEND Family Medicine | DX: Z12.31 Encounter for screening mammogram for malignant neoplasm of breast (principal); Z80.3 Family history of malignant neoplasm of breast; Z91.89 Other specified personal risk factors, not elsewhere classified | CPT/HCPCS: 77063; 77067 ==